=== PATIENT | female | born 1995 | race Caucasian/White ===

== ENCOUNTER 2024-01-10 09:55 | Emergency (ER) | payer BC ==
[~2024-01-10] VITALS: Ht 162.6 cm; Wt 61.7 kg
[2024-01-10 10:09] VITALS: BP 113/72; PULSE 74; RESP 18; TEMP 98; O2SAT 99
[2024-01-10] MEDS: NACL 0.9% 1,000 ML IV ONE (10:38)
[2024-01-10] MEDS ORDERED: ONDA-188 SL (10:42)
[2024-01-10 10:56] LABS: ALBUMIN 3.8 g/dL (3.4-5.0); ANION GAP 11.7 (8-16); CALCIUM 8.8 mg/dL (8.5-10.1); CARBON DIOXIDE 27.1 mmol/L (21-32); CREATININE 0.8 mg/dL (0.6-1.3); POTASSIUM 3.8 mmol/L (3.5-5.1); TOTAL BILIRUBIN 0.4 mg/dL (0.0-1.0); TOTAL PROTEIN, SERUM 7.3 g/dL (6.4-8.2)
[2024-01-10 10:57] LABS: BASOPHILS # (AUTO) 0.1 K/uL (0.00-0.22); BASOPHILS % (AUTO) 0.9 % (0.0-2.0); EOSINOPHILS # (AUTO) 0.1 K/uL (0-0.4); EOSINOPHILS % (AUTO) 2.1 % (0.0-4.0); HEMATOCRIT 33.9 % (36-48); HEMOGLOBIN 11.1 g/dL (12.0-16.0); LYMPHOCYTES # (AUTO) 2.2 K/uL (2.5-16.5); LYMPHOCYTES % (AUTO) 35.3 % (20.5-51.1); MEAN CORPUSCULAR HEMOGLOBIN 27 pg (27-31); MEAN CORPUSCULAR HGB CONC 33 g/dL (33-37); MEAN CORPUSCULAR VOLUME 83.5 fL (80-94); MONOCYTES # (AUTO) 0.6 K/uL (0.8-1.0); MONOCYTES % (AUTO) 8.7 % (1.7-9.3); NEUTROPHILS # (AUTO) 3.3 K/uL (1.8-7.7); PLATELET COUNT (AUTO) 247 K/uL (140-450); RED BLOOD CELL COUNT(AUTO) 4.06 MIL/uL (4.20-5.40); RED CELL DISTRIBUTION WIDTH 15.4 % (11.6-13.7); WHITE BLOOD COUNT (AUTO) 6.3 K/uL (4.8-10.8)
[2024-01-10] MEDS: MECLIZINE 25 MG TAB PO ONE (11:19)
[2024-01-10] MEDS ORDERED: MECL-303 PO (11:47)
[2024-01-10 12:24] VITALS: BP 124/66; PULSE 75; RESP 20; TEMP 98.3; O2SAT 99
== END 2024-01-10 12:23 | disposition home or self-care (01) ==
LOC: MED 09:55
DX: R11.2 Nausea with vomiting, unspecified (principal); R19.7 Diarrhea, unspecified; R42 Dizziness and giddiness; Z79.899 Other long term (current) drug therapy
CPT/HCPCS: 36415; 80053; 81025; 83690; 85025; 96360; 99283; J7030; J8597